=== PATIENT | male | born 1935 | race Caucasian/White ===

== ENCOUNTER 2023-05-30 14:42 | Inpatient (IN) | payer OTHER, SELFPAY ==
[2023-05-30] VITALS (8 sets, daily range): BP systolic 100–127; BP diastolic 56–81; BMI 24.9
--- NOTE | 2023-05-30 11:10 | ED.GENMED ---
History of Present Illness
General
Chief Complaint: Breathing Problem
Source: patient
Exam Limitations: none
Time Seen by Provider: 05/30/23 10:59
Travel History
Have you had any contact with someone who has COVID-19?: No
Do you have any symptoms of coronavirus? Fever > 100 degrees, chills, cough, shortness of breath, sore throat, loss of taste or smell, muscle aches, or headache?: No
History of Present Illness
History of Present Illness:
88-year-old male with chronic interstitial lung disease presents from facility with increased shortness of breath and oxygen demand. At baseline patient is typically on nasal cannula oxygen 8 to 10 L. He denies fevers. He denies significant cough
or chest pain. No abdominal pain or vomiting. He denies significant leg swelling. He was hypoxic at facility at his baseline ox EMS placed him on nonrebreather
Past History
Past History
ED Past Medical History: Other (Interstitial lung disease)
Social History
Tobacco: Former smoker
Alcohol: None
Drug: None
Living: with family
Phy Exam
Physical Exam
Physical Exam:
General: Well-developed male with increased work of breathing
HEENT: Normocephalic atraumatic
Heart: Regular rate and rhythm no murmur
Lungs: Coarse breath sounds throughout
Abdomen: Soft nontender nondistended
Extremities: No cyanosis or edema
Skin: Warm no rash
Scores
Heart Failure Risk
Heart Failure Risk Score: Not Applicable
Course
Orders/Labs/Results
Orders:
Orders
05/30/23 11:09
CR Chest Portable - 1 View Urgent
Comment:
Reason For Exam: sob
Reason Study Needs to be Portable: Patient Unstable
05/30/23 11:11
Dexamethasone Sod Phosphate [Decadron] 10 mg IV NOW STA
Ipratropium/Albuterol Sulfate [Duoneb] 3 ml INH R NOW ONE
05/30/23 11:18
Complete Blood Count/With Diff Urgent
Comprehensive Metabolic Panel Urgent
Lactic Acid Q4H
Comment: CANCEL 2nd LACTIC ACID IF 1st LACTIC ACID IS LESS THAN 2
NT-proBNP Urgent
Blood Culture Q30M
MICHELLE Source: Blood/Venous
Specimen Description:
Blood Culture Q30M
MICHELLE Source: Blood/Venous
Specimen Description:
05/30/23 11:44
COVID-19 Antigen Urgent
Source: Nasal Swab
Influenza A+B Rapid Molecular Urgent
MICHELLE Source: Nasal Swab
Specimen Description:
Abnormal Lab Results
05/30/23
11:18
WBC 12.2 H 10^3/uL
(4.8-10.8)
RBC 4.41 L 10^6/uL
(4.70-6.10)
MPV 11.8 H fL
(7.4-10.4)
Abs Immat Gran (auto) 0.1 H 10^3/uL
(0-0.05)
Absolute Neuts (auto) 9.8 H 10^3/uL
(1.4-6.5)
Absolute Lymphs (auto) 0.6 L 10^3/uL
(1.2-3.4)
Absolute Monos (auto) 1.7 H 10^3/uL
(0.1-0.6)
Immature Gran % 0.6 H %
(0-0.5)
Neutrophils % 79.8 H %
(42.2-75.2)
Lymphocytes % 4.7 L %
(20.5-51.1)
Monocytes % 14.1 H %
(1.7-9.3)
Glucose 142 H mg/dl
(70-99)
05/30/23 11:18
05/30/23 11:18
Vital Signs
Initial and Last Documented VS:
Initial Vital Signs
Temp Pulse Resp BP Pulse Ox
97.5 F 102 26 127/81 96
05/30/23 11:00 05/30/23 11:00 05/30/23 11:00 05/30/23 11:00 05/30/23 11:00
Last Documented Vital Signs
Temp Pulse Resp BP Pulse Ox
97.5 F 90 22 116/77 97
05/30/23 11:00 05/30/23 13:00 05/30/23 13:00 05/30/23 13:00 05/30/23 13:00
MDM/Problems Addressed
Differential Diagnosis Includes:
Hypoxia. Differential could include pneumonia versus heart failure flare of chronic lung disease.
Check labs. Patient on 10 L nonrebreather currently at 96%. He feels slightly better. Try Decadron and DuoNeb. He is chronically on steroids. Will check x-ray for pneumonia. Check BNP for evidence of heart failure but does not appear volume
overloaded at this time
*Critical Care Note
Total Time (30-74mins, 75-104mins- exclusive of procedures): Not Applicable
Update Note
Update Note:
BMP low. Chest x-ray shows chronic findings. Patient still requiring high flow oxygen. Will admit to hospital for hypoxia likely flare of underlying chronic interstitial disease.
ED Attending Note
-
Portions of this chart may have been created with voice recognition software.� Occasional wrong word or��sound alike� substitutions may have occurred due to the inherent limitations of voice recognition software.
Discharge Plan
Departure
Patient Disposition: Admit
Date of Disposition: 05/30/23
Time of Disposition: 13:21
Admit to: Telemetry
Presentation/result/management discussed w/ accepting MD/DO: Hospitalist
Discharge Problem:
Hypoxia
Prescriptions:
No Action
rosuvastatin 5 mg tablet
5 mg PO QPM
aspirin 81 mg Tablet,Delayed Release (Dr/Ec)
81 mg PO NOON
famotidine [Pepcid] 20 mg Tablet
20 mg PO BID
ipratropium bromide 21 mcg (0.03 %) [place],Non-Aerosol
2 spray INTRANASAL BIDPRN PRN (Reason: ALLERGIES)
loratadine [Claritin] 10 mg Tablet
10 mg PO DAILY
cyclosporine [Restasis] 0.05 % Dropperette
1 drp BOTH EYES Q12H
sodium chloride 0.65 % Aerosol,[place]
1 - 2 spray INTRANASAL DAILYPRN PRN (Reason: congestion)
pregabalin [Lyrica] 100 mg Capsule
200 mg PO DAILY
omeprazole 20 mg Tablet,Delayed Release (Dr/Ec)
20 mg PO HS
Ofev 150 mg Capsule
150 mg PO DAILY
diltiazem HCl 120 mg Capsule,Extended Release 24hr
120 mg PO DAILY Qty: 30 2RF
prednisone 10 mg tablet
10 mg PO MOWEFR Qty: 30 0RF
pregabalin [Lyrica] 100 mg Capsule
100 mg PO BID@1200,1800
Referrals:
UNKNOWN - PT DOES,NOT KNOW [Family Provider] -
Interventions
Interventions:
*Risk Screen - Suicide Last Done: 05/30/23 11:00
*General Assessment Last Done: 05/30/23 11:00
*Neglect/Abuse Screening Last Done: 05/30/23 11:00
ED- Fall Risk Assessment Last Done: 05/30/23 11:07
*ED COVID-19 Vaccine History Last Done: 05/30/23 11:00
ED- Cardiac Assessment Last Done: 05/30/23 11:07
ED- Pulmonary Assessment Last Done: 05/30/23 11:07
[2023-05-30] MEDS: DUONEB 3 ML INH ×3 (11:21→19:59)
[2023-05-30] MEDS: DECADRON 10 MG IV (11:21)
[2023-05-30 11:31] LABS: % Basophils 0.2 % (0-2); % Eosinophils 0.6 % (0-6); % Immature Granulocytes 0.6 % (0-0.5); % Lymphocytes 4.7 % (20.5-51.1); % Monocytes 14.1 % (1.7-9.3); % Neutrophils 79.8 % (42.2-75.2); Absolute Eosinophils 0.1 10^3/uL (0-0.7); Absolute Immature Granulocytes 0.1 10^3/uL (0-0.05); Absolute Lymphocytes 0.6 10^3/uL (1.2-3.4); Absolute Monocytes 1.7 10^3/uL (0.1-0.6); Absolute Neutrophils 9.8 10^3/uL (1.4-6.5); Hematocrit 39.3 % (39.0-52.0); Mean Corp Hgb Conc. 33.1 g/dL (33.0-37.0); Mean Corpuscular Hgb 29.5 pg (27.0-31.0); Mean Corpuscular Volume 89.1 fL (80.0-94.0); Mean Platelet Volume 11.8 fL (7.4-10.4); Nucleated Red Blood Cells % 0 % (-); Platelet Count 248 10^3/uL (130-400); Red Blood Cell Count 4.41 10^6/uL (4.70-6.10); Red Cell Dist. Width 14.5 % (11.5-14.5); White Blood Cell Count 12.2 10^3/uL (4.8-10.8)
[2023-05-30 11:46] LABS: ALT (SGPT) 21 U/L (0-50); AST (SGOT) 23 U/L (17-59); Albumin 3.6 g/dl (3.5-5.0); Alkaline Phosphatase 91 U/L (38-126); Blood Urea Nitrogen 17 mg/dl (9-20); Calcium 8.7 mg/dl (8.4-10.2); Carbon Dioxide 29 mmol/L (22-30); Chloride 104 mmol/L (98-107); Estimated Creatinine Clearance 69 ml/min; Glucose 142 mg/dl (70-99); Lactic Acid 1.3 mmol/L (0.7-2.0); Potassium 4.3 mmol/L (3.5-5.1); Sodium 136 mmol/L (135-145); Total Bilirubin 1.3 mg/dl (0.2-1.3); Total Protein 6.4 g/dl (6.3-8.2); eGFR > 60.00
[2023-05-30 11:54] LABS: NT-proBNP 398 pg/ml
[2023-05-30 12:16] LABS: COVID-19 Antigen Negative (Negative)
--- NOTE | 2023-05-30 14:14 | HPS.HSE ---
Addendum entered and electronically signed by Bharath Pena MD 05/30/23 15:34:
Seen and examined by me independently in collaboration with the nurse practitioner Caren.
Past medical history/social history/medication/allergies reviewed.
Lab data and imaging data reviewed.
Patient with significant history for chronic hypoxic respiratory failure from ILD on 8 to 10 L presents with more hypoxia and shortness of breath.
Been progressive. No premonitory infective symptoms of upper respiratory tract or lower respiratory tract.
Denies any chest pains or palpitations. BNP normal for his age and no JVD or LE edema.
On chronic steroids.
He has no wheeze but he has bilateral extensive crackles. He is not in in any distress currently stable on 10 L in the ER. His saturations does drop with prolonged conversation.
Unclear if this is flareup of his ILD. Start on steroids. Consult pulmonary.
He is DNR.
Discussed with and son at bedside regarding clinical findings and treatment plan.
Original Note:
Family Physician
-
Family Physician: NOT KNOW UNKNOWN - PT DOES
Chief Complaint
-
Shortness of Breath
History of Present Illness
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
Neuralgia who was brought in by EMS to the ED c/o SOB x 1 day. He states he is always a little short of breath but that is has worsened in the last day. He states exertion of any kind, including speaking, worsens his symptoms significantly. He
states that this is similar to previous exacerbations of his interstitial lung disease. At baseline he is on 8-10L of O2 through nasal cannula. He denies fever, chills, cough, chest pain, abdominal pain, N/V/D/C, or peripheral edema.
Medical History
Past Medical History
Past Medical History: Reports Other
Additional Past Medical History:
Chronic Hypoxic Respiratory Failure
Interstitial Lung Disease
Pulmonary Hypertension
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
Premature Atrial Tachycardia
CKD Stage II
Hypercholesteremia
Post-Herpetic Neuralgia
BPH
Chronic Diarrhea
Past Surgical History: Reports Other
Additional Past Surgical History:
Cataracts
Laporte Teeth
Social History
Tobacco: Non-smoker
Alcohol: None
Drug: None
Family History
Family History: Not pertinent
Allergies / Home Medications
Allergies reflects when Allergies were last updated in [facility].
Home Medications with original date entered in [facility]
Allergy/Medication List:
Allergies
Allergy/AdvReac Type Severity Reaction Status Date / Time
No Known Allergies Allergy Verified 05/30/23 10:59
Home Medications
aspirin 81 mg tablet,delayed release 81 mg PO NOON Blood Clot Prevention/Tx 02/28/23
cyclosporine 0.05 % eye drops in a dropperette (Restasis) 1 drp BOTH EYES Q12H Eye Condition 02/28/23
famotidine 20 mg tablet (Pepcid) 20 mg PO BID Gastrointestinal Issue 02/28/23
ipratropium bromide 21 mcg (0.03 %) nasal spray 2 spray intranasal BIDPRN PRN ALLERGIES 02/28/23
loratadine 10 mg tablet (Claritin) 10 mg PO DAILY Allergies 02/28/23
nintedanib 150 mg capsule (Ofev) 150 mg PO DAILY interstitial lung disease 02/28/23
omeprazole 20 mg tablet,delayed release 20 mg PO HS Gastrointestinal Issue 02/28/23
pregabalin 100 mg capsule (Lyrica) 200 mg PO DAILY Pain 02/28/23
rosuvastatin 5 mg tablet 5 mg PO QPM High Cholesterol 02/28/23
sodium chloride 0.65 % nasal spray aerosol 1 - 2 spray intranasal DAILYPRN PRN congestion 02/28/23
diltiazem HCl 120 mg capsule,extended release 24 hr 120 mg PO DAILY Tachycardia #30 caps 03/04/23
prednisone 10 mg tablet 10 mg PO MOWEFR #30 tabs 03/04/23
pregabalin 100 mg capsule (Lyrica) 100 mg PO BID@1200,1800 05/30/23
Review of Systems
-
A 12 point ROS was completed and negative except as noted: Yes
Constitutional: Denies Fever or Chills
Respiratory: Reports Trouble Breathing; Denies Cough
Cardiac: Denies Chest Pain or Palpitations
Musculoskeletal: Denies Edema
Physical Exam
Vital Signs
Vital Signs
Temp Pulse Resp BP Pulse Ox
97.5 F 90 22 116/77 97
05/30/23 11:00 05/30/23 13:00 05/30/23 13:00 05/30/23 13:00 05/30/23 13:00
Physical Exam
General: Comfortable and Conversant (Conversational Dyspnea, quickly drops to 88% with conversation)
HEENT: Moist mucous membranes, Atraumatic and Oxygen (Nasal Cannula)
Respiratory: Rales (Diffuse) and Non Labored Respirations; No Wheezes
Cardiac: S1/S2 and Regular Rhythm
GI: Soft and Non Tender
Rectal: Deferred by Provider
Musculoskeletal: No Clubbing, No Cyanosis and Other (Trace edema bilateral lower ext)
Skin: Warm and Dry
Neuro: Awake, Alert, Oriented and Nonfocal/grossly intact
Laboratory Results
-
05/30/23 11:18
05/30/23 11:18
Laboratory Results
Lactic Acid Cancelled 05/30/23 15:15
Total Bilirubin 1.3 mg/dl (0.2-1.3) 05/30/23 11:18
AST 23 U/L (17-59) 05/30/23 11:18
ALT 21 U/L (0-50) 05/30/23 11:18
Alkaline Phosphatase 91 U/L (38-126) 05/30/23 11:18
Data Reviewed
-
Diagnostic Radiology: Report Reviewed by me
Lab Data: Labs Reviewed by me
Old Records: Reviewed
Impression/Plan
-
Acute on Chronic Hypoxic Respiratory Failure
-Continue supplemental oxygen - Baseline 8-10L
Acute Exacerbation of Interstitial Lung Disease
-Consult Pulmonary
-Transition oral prednisone to Decadron
-Continue DuoNeb QID and PRN
Premature Atrial Tachycardia
-Continue Diltiazem
Hypercholesteremia
-Continue Crestor
Post-Herpetic Neuralgia
-Continue Lyrica
DVT proph: Lovenox
Code Status: Full Code
--- NOTE | 2023-05-30 16:00 | PTCARENOTE ---
Received pt from ED, VSS, pulse ox 94% on 10 liters midflow. Lungs with scattered rales throughout. Appears comfortable at present, family at bedside. No complaints offered.
--- NOTE | 2023-05-30 16:44 | CON.PUL ---
Consultation
Consultation Request
Date/Time Consultation Requested: 05-30-23
Date/Time Consultation Performed: 05-30-23
Requesting Provider: Hospitalist
Performing Provider: Dr Wan
Reason for Consultation: dyspnea
Medical History
-
Chief Complaint: dyspnea
History of Present Illness:
Mr Booker Fragoso is an 88/M adm 05-30 with 1 wk h/o acute on chronic dyspnea, per report POx on walking 10-15 ft down to 70s while on O2 10L, called office 05-29, rec to come to ER.
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
Denies cough, expectoration, wheezing, fever, NS, chills, n/v. Reports no change in mild chronic DINAH edema, mild intermittent diarrhea (ofev related, on intermittent imodium) and postnasal drip. Denies CP, dysuria. Reports reflux is controlled on
famotidine
While seen at [facility], on O2 12L, POx 95% appeared comfortable, speaking in full sentences
Past Medical History
Past Medical History: Other (see A&P for PMH/PSH)
Social History
Tobacco: Non-smoker
Alcohol: None
Drug: None
Personal:
Living: Assisted Living
Family History
Family History: Reviewed & Not Pertinent
Allergies / Home Medications
Allergies
Allergy/AdvReac Type Severity Reaction Status Date / Time
No Known Allergies Allergy Verified 05/30/23 10:59
Home Medications
Medication Instructions Recorded Confirmed Last Taken Type
aspirin 81 mg tablet,delayed 81 mg PO NOON Blood Clot 02/28/23 05/30/23 05/29/23 History
release Prevention/Tx
cyclosporine 0.05 % eye drops in a 1 drp BOTH EYES Q12H Eye Condition 02/28/23 05/30/23 05/30/23 History
dropperette (Restasis)
famotidine 20 mg tablet (Pepcid) 20 mg PO BID Gastrointestinal Issue 02/28/23 05/30/23 05/30/23 History
ipratropium bromide 21 mcg (0.03 2 spray intranasal BIDPRN PRN 02/28/23 05/30/23 Unknown History
%) nasal spray ALLERGIES
loratadine 10 mg tablet (Claritin) 10 mg PO DAILY Allergies 02/28/23 05/30/23 02/27/23 History
nintedanib 150 mg capsule (Ofev) 150 mg PO DAILY interstitial lung 02/28/23 05/30/23 05/30/23 History
disease
omeprazole 20 mg tablet,delayed 20 mg PO HS Gastrointestinal Issue 02/28/23 05/30/23 05/29/23 History
release
pregabalin 100 mg capsule (Lyrica) 200 mg PO DAILY Pain 02/28/23 05/30/23 05/30/23 History
rosuvastatin 5 mg tablet 5 mg PO QPM High Cholesterol 02/28/23 05/30/23 05/29/23 History
sodium chloride 0.65 % nasal spray 1 - 2 spray intranasal DAILYPRN 02/28/23 05/30/23 Unknown History
aerosol PRN congestion
diltiazem HCl 120 mg 120 mg PO DAILY Tachycardia #30 03/04/23 05/30/23 05/30/23 Rx
capsule,extended release 24 hr caps
prednisone 10 mg tablet 10 mg PO MOWEFR #30 tabs 03/04/23 05/30/23 05/30/23 Rx
pregabalin 100 mg capsule (Lyrica) 100 mg PO BID@1200,1800 05/30/23 05/30/23 05/29/23 History
Review of Systems
-
History Source: Patient
All other systems: Negative unless noted
Respiratory: Trouble Breathing
Abdomen/GI: Diarrhea
Musculoskeletal: Edema (DINAH)
Vitals / Labs / Diagnostic Testing
Vital Signs
Temp Pulse Resp BP Pulse Ox
97.5 F 95 24 115/67 94
05/30/23 15:56 05/30/23 15:56 05/30/23 15:56 05/30/23 15:56 05/30/23 15:56
Lab Data
05/30/23 11:18
05/30/23 11:18
Microbiology
05/30/23 11:44 Nasal Swab Influenza Types A & B (ANNETTE) - Final
Negative for Influenza A & B, NAAT
Negative results must be combined with clinical observations
and patient history.
Nucleic Acid Amplification test (NAAT)performed on the
[employer] platform.
Diagnostic Testing:
Physical Exam
-
HEENT: Normocephalic and Moist Mucous Membranes
Cardiovascular: Regular Rhythm, Murmur (n), Peripheral Edema (mild legs edema), Calf Tenderness (n) and JVD
Respiratory: Wheeze (n), Rales (velcro at bases) and Accessory Resp Muscle Use (n at rest)
GI: Soft, Non Distended and Non Tender
Neurology: Awake, AO x 3 and No Motor Deficits
Skin: Dry
General: Respiratory Distress (n at rest on O2)
Assessment
-
Assessment:
Mr Booker Fragoso is an 88/M adm 05-30 with 1 wk h/o acute on chronic dyspnea, per report POx on walking 10-15 ft down to 70s while on O2 10L, called office 05-29, rec to come to ER. 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
Denies cough, expectoration, wheezing, fever, NS, chills, n/v. Reports no change in mild chronic DINAH edema, mild intermittent diarrhea (ofev related, on intermittent imodium) and postnasal drip. Denies CP, dysuria. Reports reflux is controlled on
famotidine
Impression:
Acute on chronic hypoxemic respiratory failure
ILD flare, recurrent
Mild leukocytosis
Normal BNP
COVID/flu negative
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
ILD, baseline O2 8-10L, on nintedanib, on chronic prednisone 10 mg MWF
ILD flare adm DH 02-28 to , treated with IV CS, also cefepime/po doxy changed to cefdinir/po doxy to complete 10 d course
Developed brief AFib, started on diltiazem po
GERD
CKD
Postherpetic neuralgia
BPH
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
Nonsmoker
Plan:
Continue O2 protocol
Already on home O2 for last 5y, currently at 8-10L, home concentrator delivers 10 L max
Known h/o fibrotic ILD, on ofev with good compliance
Comfortable on O2 12L at time of visit while at rest, POx 95%, wean down O2 as tolerated for POx>=90%
Keep asp precs
Adm CXR appears better re basilar GGOs seen in last adm Feb 2023
No current evidence of infectious process
Continue empiric dexam 4 mg IV q6, eventually will return to chronic prednisone 10 mg MWF
Observe off atbs at this time, no clinical evidence of resp infection
Check PCT, blood cxs, UA with reflex cx
Discussed fibrotic ILD diagnosis, natural history and treatment
They are aware of the progressive decline seen in ILD over time, confirm DNR status
Continue DNs qid and prn
Check DINAH doppler
DVT proph for now: enoxaparin
D/w and Mrs Fragoso and their son at bedside
Diagnostic tests:
CXR 05-30-23 c/w 02-28-23 and 12-05-22. Baseline with mld to moderate fibrotic changes, Nov film with bilateral basilar GGOs. Current film with improved basilar GGOs and mild pulm vasc congestion, overall progression of ILD
TTE (02/28/2023):
Normal left ventricular size, wall thickness and systolic function.
LV ejection fraction is 60-65%.
Mild mitral regurgitation.
Mild tricuspid regurgitation.
Pulmonary hypertension
mildly dilated aortic root 3.9cm
Compared to the previous echo 05/26/22there is no significant change
[2023-05-30] MEDS: LYRICA 100 MG PO (17:00)
[2023-05-30] MEDS: LOVENOX 40 MG SC (17:00)
[2023-05-30] MEDS: CRESTOR 5 MG PO (17:00)
[2023-05-30] MEDS: DECADRON 4 MG IV ×2 (17:01→21:39)
[2023-05-30 18:44] LABS: Procalcitonin < 0.05 ng/ml (0.0-0.25)
[2023-05-30] MEDS: RESTASIS 0.05% OPHTHALMIC EMULSION 1 DROPS BOTH EYES (19:46)
[2023-05-30] MEDS: PEPCID 20 MG PO (19:46)
[2023-05-30 20:43] LABS: Urine Albumin 1+ (Neg - Trace); Urine Bilirubin 1+ (Negative); Urine Character Clear (Clear); Urine Color Yellow; Urine Glucose 2+ (Negative); Urine Ketone Trace (Negative); Urine Leukocyte Trace (Negative); Urine Nitrite Negative (Negative); Urine Occult Blood 1+ (Negative); Urine Urobilinogen Negative (Neg - 1+)
[2023-05-30 20:55] LABS: Urine Squamous Cell 0-2 /LPF (Few)
[2023-05-31] VITALS (8 sets, daily range): BP systolic 101–144; BP diastolic 57–78; PULSE 100–110; O2SAT 95
[2023-05-31] MEDS: DECADRON 4 MG IV ×4 (03:19→21:34)
[2023-05-31] MEDS: DUONEB 3 ML INH ×4 (07:42→19:33)
[2023-05-31 08:17] LABS: Hematocrit 35.5 % (39.0-52.0); Hemoglobin 11.8 g/dL (13.0-18.0); Mean Corp Hgb Conc. 33.2 g/dL (33.0-37.0); Mean Corpuscular Hgb 29.1 pg (27.0-31.0); Mean Corpuscular Volume 87.7 fL (80.0-94.0); Mean Platelet Volume 11.7 fL (7.4-10.4); Platelet Count 228 10^3/uL (130-400); Red Blood Cell Count 4.05 10^6/uL (4.70-6.10); Red Cell Dist. Width 13.9 % (11.5-14.5); White Blood Cell Count 7.6 10^3/uL (4.8-10.8)
[2023-05-31] MEDS: RESTASIS 0.05% OPHTHALMIC EMULSION 1 DROPS BOTH EYES ×2 (08:35→19:54)
[2023-05-31] MEDS: CLARITIN 10 MG PO (08:35)
[2023-05-31] MEDS: LYRICA 200 MG PO (08:36)
[2023-05-31] MEDS: NON-FORMULARY ITEM 150 MG PO (08:37)
[2023-05-31] MEDS: PROTONIX 40 MG PO (08:37)
[2023-05-31] MEDS: PEPCID 20 MG PO ×2 (08:37→19:53)
[2023-05-31] MEDS: CARDIZEM CD 120 MG PO (08:37)
[2023-05-31 08:50] LABS: Blood Urea Nitrogen 18 mg/dl (9-20); Carbon Dioxide 27 mmol/L (22-30); Chloride 106 mmol/L (98-107); Estimated Creatinine Clearance 92 ml/min; Glucose 146 mg/dl (70-99); Magnesium 2.4 mg/dl (1.6-2.3); Potassium 4.6 mmol/L (3.5-5.1); Sodium 136 mmol/L (135-145); eGFR > 60.00
[2023-05-31] MEDS: TYLENOL 650 MG PO (08:57)
--- NOTE | 2023-05-31 10:11 | CM ---
Patient seen bedside, initial assessment completed. Patient reports he lives with his , Sweta, at [facility], has been there for 13 years. Patient denies VN or SNF. Patient denies DME other than oxygen through [employer],
patient reports typically on 10L. Patient reports family doctor Dr. Walsh, pharmacy used [facility]. CM will continue to follow for discharge planning needs.
Plan; return to [facility], watch for PT/OT eval for possible VN needs.
[2023-05-31] MEDS: ASPIR LOW (ENTERIC COATED) 81 MG PO (12:17)
[2023-05-31] MEDS: LYRICA 100 MG PO ×2 (12:18→16:43)
--- NOTE | 2023-05-31 12:30 | W.PN.PUL3 ---
Today's Communication / Plan
-
O2
CS
BDs
UCx
Assessment
-
Assessment:
Mr Booker Fragoso is an 88/M adm 05-30 with 1 wk h/o acute on chronic dyspnea, per report POx on walking 10-15 ft down to 70s while on O2 10L, called office 05-29, rec to come to ER. 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
Denies cough, expectoration, wheezing, fever, NS, chills, n/v. Reports no change in mild chronic DINAH edema, mild intermittent diarrhea (ofev related, on intermittent imodium) and postnasal drip. Denies CP, dysuria. Reports reflux is controlled on
famotidine
Impression:
Acute on chronic hypoxemic respiratory failure
ILD flare, recurrent
Mild leukocytosis
Normal BNP
COVID/flu negative
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
ILD, baseline O2 8-10L, on nintedanib, on chronic prednisone 10 mg MWF
ILD flare adm DH 02-28 to , treated with IV CS, also cefepime/po doxy changed to cefdinir/po doxy to complete 10 d course
Developed brief AFib, started on diltiazem po
GERD
CKD
Postherpetic neuralgia
BPH
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
Nonsmoker
Plan:
Continue O2 protocol
Already on home O2 for last 5y, currently at 8-10L, home concentrator delivers 10 L max
Known h/o fibrotic ILD, on ofev with good compliance
Comfortable on O2 12L at time of consult while at rest, POx 95%, wean down O2 as tolerated for POx>=90%
Currently on 9L, POx 95% at rest
Discussed goal of POx>=90% to titrate his O2 use, explained that does not need to keep higher level of oximetry as long as otherwise resp stable
Monitor for epistaxis which he has presented in the past
Keep asp precs
Adm CXR appears better re basilar GGOs seen in last adm Feb 2023
Continue empiric dexam 4 mg IV q6, continue for now, eventually will return to chronic prednisone 10 mg MWF
Observe off atbs at this time, no clinical evidence of resp infection
Remains afebrile and hemodyn stable
PCT negative
Blood cxs pending
UA with microhematuria, no reflex cx sent, ordered cx
Discussed fibrotic ILD diagnosis, natural history and treatment
They are aware of the progressive decline seen in ILD over time, confirm DNR status
Continue DNs qid and prn
Reports noticeable improvement of dyspnea with inpatient use of DNs, would like to continue nebulized BDs at home, will need nebulizer device prescribed upon d/c for prn use of DNs at home (q6 prn)
DINAH doppler 05-30 negative
DVT proph: enoxaparin
D/w and Mrs Fragoso and their son at bedside
Diagnostic tests:
CXR 05-30-23 c/w 02-28-23 and 12-05-22. Baseline with mld to moderate fibrotic changes, Nov film with bilateral basilar GGOs. Current film with improved basilar GGOs and mild pulm vasc congestion, overall progression of ILD
TTE (02/28/2023):
Normal left ventricular size, wall thickness and systolic function.
LV ejection fraction is 60-65%.
Mild mitral regurgitation.
Mild tricuspid regurgitation.
Pulmonary hypertension
mildly dilated aortic root 3.9cm
Compared to the previous echo 05/26/22there is no significant change
Subjective Data
-
Date of Service:
Date of Service: May 31, 2023
Chief Complaint: Pulmonary Follow Up
Subjective:
No major events reported
Comfortable on O2 10L, earlier on 9L with POx 95%
No resp distress at rest on O2, per still very dyspneic with minimal activity
Seen by PT, on 10L O2, rapid desaturation with minimal activity
Review of Systems
General: Fever (n), Sweats (n), Chills (n) and Satisfactory Appetite
HEENT: Epistaxis (n) and Dysphagia
Cardiopulmonary: Dyspnea (n at rest on O2), Dyspnea on Exertion, Cough (trace), Sputum Production (n), Wheezing (n) and Chest Pain (n)
GI: Abdominal Pain (n), Nausea (n), Vomiting (n) and Diarrhea (intermittent)
Neuro: Weakness
Objective Data
Data Reviewed
Vital Signs / I&O / Oxygen:
Vital Signs
Temp Pulse Resp BP Pulse Ox
97.4 F 87 19 125/64 98
05/31/23 11:30 05/31/23 11:30 05/31/23 11:30 05/31/23 11:30 05/31/23 11:30
Intake and Output
05/30/23 05/31/23 06/01/23
06:59 06:59 06:59
Intake Total 840 / 840
Output Total 550 / 550
Balance 290 / 290
SaO2 98
Nasal Cannula flow liters per 10
minute
Physical Exam
General: Comfortable
HEENT: Normocephalic and Moist Mucous Membranes
Cardiovascular: Regular Rhythm, Murmur (n) and Peripheral Edema (mild DINAH)
Respiratory: Wheeze (n), Crackles (velcro ), Rhonchi (trace), Non-Labored Respirations (at rest) and Stridor (n)
GI: Soft, Non Distended and Non Tender
Neurology: Awake, AO x 3 and No Motor Deficits
Skin: Dry
Labs/Micro/Reports
Lab Data
05/31/23 07:38
05/31/23 07:38
Microbiology
05/30/23 11:18 Blood/Venous Blood Culture - Preliminary
No Growth in 24 hours- Final report to follow
05/30/23 11:18 Blood/Venous Blood Culture - Preliminary
No Growth in 24 hours- Final report to follow
05/30/23 11:44 Nasal Swab Influenza Types A & B (ANNETTE) - Final
Negative for Influenza A & B, NAAT
Negative results must be combined with clinical observations
and patient history.
Nucleic Acid Amplification test (NAAT)performed on the
[employer] platform.
--- NOTE | 2023-05-31 13:32 | W.PN.HOSP.TC ---
Today's Communication/Plan
-
Continue with IV Decadron.
Continue with nebulizers.
Wean oxygen as able.
Assessment / Plan
Assessment / Plan
Acute on Chronic Hypoxic Respiratory Failure
-Continue supplemental oxygen - Baseline 8-10L
Acute Exacerbation of Interstitial Lung Disease
-Appreciate pulmonary input
-Transition oral prednisone to IV Decadron
-Continue DuoNeb QID and PRN
Premature Atrial Tachycardia
-Continue Diltiazem
Hypercholesteremia
-Continue Crestor
Post-Herpetic Neuralgia
-Continue Lyrica
DVT proph: Lovenox
Code Status: Full Code
Anticipated Discharge: 24 - 48 hours
Subjective/Interval History
-
Date of Service: May 31, 2023
No new changes but has then noticed the nebulizer is helping him breathe better.
Not much of cough, wheezing. No chest pain. No fever.
Objective Data
-
Labs:
Laboratory Results
05/31/23
07:38
WBC 7.6
Hgb 11.8 L
Hct 35.5 L
Plt Count 228
Sodium 136
Potassium 4.6
Chloride 106
Carbon Dioxide 27
BUN 18
Creatinine 0.6 L
Glucose 146 H
Calcium 9.0
Vital Signs:
Vital Signs
Temp Pulse Resp BP Pulse Ox
97.4 F 87 19 125/64 98
05/31/23 11:30 05/31/23 11:30 05/31/23 11:30 05/31/23 11:30 05/31/23 11:30
I&O
05/30/23 05/31/23 06/01/23
06:59 06:59 06:59
Intake Total 840 / 840
Output Total 550 / 550
Balance 290 / 290
Review of Systems
-
EENT: Denies Sore Throat
Abdomen/GI: Denies Abdominal Pain, Nausea or Vomiting
Neuro: Denies Dizzy
Physical Exam
-
General: No Apparent Distress
HEENT: Moist Mucous Membranes
Respiratory: Crackles and Non Labored Respirations; Negative Wheezes or Accessory Resp Muscle Use
Cardiac: Regular Rhythm and S1/S2
Neuro: AO x 3
Psych: Calm
Data Reviewed
-
Labs: Labs Reviewed by me
[2023-05-31] MEDS: CRESTOR 5 MG PO (16:43)
[2023-05-31] MEDS: LOVENOX 40 MG SC (17:03)
[2023-06-01 03:00] VITALS: BP 118/71
[2023-06-01] MEDS: DECADRON 4 MG IV ×3 (03:01→17:19)
[2023-06-01] MEDS: DUONEB 3 ML INH ×4 (07:16→19:52)
[2023-06-01 07:30] VITALS: BP 138/80
[2023-06-01] MEDS: RESTASIS 0.05% OPHTHALMIC EMULSION BOTH EYES ×2 (08:00→09:08)
[2023-06-01] MEDS: TYLENOL 650 MG PO ×2 (09:06→21:05)
[2023-06-01] MEDS: PEPCID 20 MG PO ×2 (09:08→20:10)
[2023-06-01] MEDS: CARDIZEM CD 120 MG PO (09:10)
[2023-06-01] MEDS: CLARITIN 10 MG PO (09:10)
[2023-06-01] MEDS: LYRICA 200 MG PO (09:10)
[2023-06-01] MEDS: NON-FORMULARY ITEM 150 MG PO (09:11)
[2023-06-01] MEDS: PROTONIX 40 MG PO (09:12)
--- NOTE | 2023-06-01 11:11 | CM ---
Patient seen bedside, discussed PT recommendation of home health. Patient declining at this time, reports he knows the exercises. IMM reviewed with patient, signed, placed in patients chart. CM will continue to follow for discharge planning needs.
Plan; return to [facility], declining HH at this time.
[2023-06-01 11:30] VITALS: BP 122/74
[2023-06-01] MEDS: LYRICA 100 MG PO ×2 (12:13→17:19)
[2023-06-01] MEDS: ASPIR LOW (ENTERIC COATED) 81 MG PO (12:13)
--- NOTE | 2023-06-01 12:38 | W.PN.PUL.V3 ---
Today's Communication / Plan
-
wean oxygen.
I will decrease Decadron.
Assessment discharge supplemental oxygen needs.
Outpatient pulmonary follow-up
Assessment
-
Assessment:
Mr Booker Fragoso is an 88/M adm 05-30 with 1 wk h/o acute on chronic dyspnea, per report POx on walking 10-15 ft down to 70s while on O2 10L, called office 05-29, rec to come to ER. 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
Denies cough, expectoration, wheezing, fever, NS, chills, n/v. Reports no change in mild chronic DINAH edema, mild intermittent diarrhea (ofev related, on intermittent imodium) and postnasal drip. Denies CP, dysuria. Reports reflux is controlled on
famotidine
Acute on chronic hypoxemic respiratory failure
ILD flare, recurrent
Mild leukocytosis
Normal BNP
COVID/flu negative
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
ILD, baseline O2 8-10L, on nintedanib, on chronic prednisone 10 mg MWF
ILD flare adm [facility] 02-28 to '23, treated with IV CS, also cefepime/po doxy changed to cefdinir/po doxy to complete 10 d course
Developed brief AFib, started on diltiazem po
GERD
CKD
Postherpetic neuralgia
BPH
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
Nonsmoker
Plan:
Respiratory status tenuous but slowly improving.
Continue supplemental oxygen-currently on 10 L-at-home 6 L at rest and 10 L with exertion.
Monitor for epistaxis.
Nebulizers as needed
Aspiration precautions.
Decrease Decadron to 4 mg IV every 8 hours
Follow cultures.
Observe off antibiotics.
Pro-calcitonin negative.
DVT prophylaxis-on Lovenox.
GI prophylaxis-on pantoprazole.
Nutrition
Early mobilization/physical therapy.
Outpatient follow-up with Dr. Hill
Diagnostic tests:
CXR 05-30-23 c/w 02-28-23 and 12-05-22. Baseline with mld to moderate fibrotic changes, Nov film with bilateral basilar GGOs. Current film with improved basilar GGOs and mild pulm vasc congestion, overall progression of ILD
TTE (02/28/2023):
Normal left ventricular size, wall thickness and systolic function.
LV ejection fraction is 60-65%.
Mild mitral regurgitation.
Mild tricuspid regurgitation.
Pulmonary hypertension
mildly dilated aortic root 3.9cm
Compared to the previous echo 05/26/22there is no significant change
Subjective Data
-
Date of Service:
Date of Service: June 01, 2023
Chief Complaint: Pulmonary Follow Up and Dyspnea Follow Up
Subjective:
He feels better, less short of breath, has dyspnea exertion, no chest pain, productive cough, or abdominal pain
Review of Systems
General: Other ( per HPI)
Objective Data
Data Reviewed
Vital Signs / I&O:
Vital Signs
Temp Pulse Resp BP Pulse Ox
97.7 F 73 18 138/80 96
06/01/23 07:30 06/01/23 11:03 06/01/23 07:30 06/01/23 09:10 06/01/23 11:03
Intake and Output
05/31/23 06/01/23 06/02/23
06:59 06:59 06:59
Intake Total 840 / 840 1440 / 1440
Output Total 550 / 550 450 / 450
Balance 290 / 290 990 / 990
SaO2: 96
Nasal Cannula flow liters per minute: 8
Physical Exam
General: Comfortable
HEENT: Normocephalic and Moist Mucous Membranes
Cardiovascular: Regular Rhythm, Murmur (n) and Peripheral Edema (mild DINAH)
Respiratory: Wheeze (n), Crackles (velcro -like at the bases), Rhonchi (trace), Non-Labored Respirations (at rest) and Stridor (n)
GI: Soft, Non Distended and Non Tender
Neurology: Awake, Alert and No Motor Deficits
Skin: Dry, Cyanosis (n), Jaundice (n) and Rash (n)
Labs/Micro/Reports
Lab Data
05/31/23 07:38
05/31/23 07:38
Microbiology
05/30/23 11:18 Blood/Venous Blood Culture - Preliminary
No Growth in 48 hours- Final report to follow
05/30/23 11:18 Blood/Venous Blood Culture - Preliminary
No Growth in 48 hours- Final report to follow
05/30/23 18:00 Blood/Venous Blood Culture - Preliminary
No Growth in 24 hours- Final report to follow
05/30/23 11:44 Nasal Swab Influenza Types A & B (ANNETTE) - Final
Negative for Influenza A & B, NAAT
Negative results must be combined with clinical observations
and patient history.
Nucleic Acid Amplification test (NAAT)performed on the
[employer] platform.
--- NOTE | 2023-06-01 12:52 | W.PN.HOSP.TC ---
Today's Communication/Plan
-
Continue with steroids.
Check D-dimers.
Assessment / Plan
Assessment / Plan
Acute on Chronic Hypoxic Respiratory Failure
-Continue supplemental oxygen - Baseline 8-10L
Acute Exacerbation of Interstitial Lung Disease
-Appreciate pulmonary input
-Transition oral prednisone to IV Decadron
-Continue DuoNeb QID and PRN
-Minimal improvement. Ultrasound of legs negative for DVT. Get a D-dimer and if it is positive I would get a CT chest to rule out any underlying pulmonary embolism and if negative will be more comfortable continuing with steroids. Currently no
evidence of lung infection. Holding on antibiotics.
Premature Atrial Tachycardia
-Continue Diltiazem
Hypercholesteremia
-Continue Crestor
Post-Herpetic Neuralgia
-Continue Lyrica
DVT proph: Lovenox
Code Status: Full Code
Anticipated Discharge: 24 - 48 hours
Subjective/Interval History
-
Date of Service: June 01, 2023
some improvement but overall not a great improvement yet on steroids.
He is taking longer to recover after exertion. Minimal exertion causing the symptoms.
Objective Data
-
Vital Signs:
Vital Signs
Temp Pulse Resp BP Pulse Ox
97.7 F 97 19 122/74 96
06/01/23 11:30 06/01/23 11:30 06/01/23 11:30 06/01/23 11:30 06/01/23 12:40
I&O
05/31/23 06/01/23 06/02/23
06:59 06:59 06:59
Intake Total 840 / 840 1440 / 1440
Output Total 550 / 550 450 / 450
Balance 290 / 290 990 / 990
Review of Systems
-
Constitutional: Denies Fever
Cardiac: Denies Chest Pain or Palpitations
Abdomen/GI: Denies Abdominal Pain, Nausea or Vomiting
Neuro: Denies Dizzy
Physical Exam
-
General: No Apparent Distress
HEENT: Moist Mucous Membranes
Respiratory: Crackles; Negative Wheezes
Cardiac: Regular Rhythm, S1/S2 and Tachycardic
GI: Soft
Musculoskeletal: No Edema
Neuro: AO x 3
Psych: Calm; Negative Confused
Data Reviewed
-
Labs: Labs Reviewed by me
[2023-06-01 14:44] LABS: D-Dimer 0.73 ug/mlFEU (0.00-0.50)
[2023-06-01 15:01] VITALS: BP 123/76
[2023-06-01] MEDS: LOVENOX 40 MG SC (17:19)
[2023-06-01] MEDS: CRESTOR 5 MG PO (17:19)
--- NOTE | 2023-06-01 18:52 | PTCARENOTE ---
Changed entire linen; clean linen.
[2023-06-01 19:57] VITALS: BP 116/69
[2023-06-01] MEDS: RESTASIS 0.05% OPHTHALMIC EMULSION 1 DROPS BOTH EYES (20:10)
[2023-06-01] MEDS: REFRESH EYE DROPS (PF) 1 DROPS OPHTH (20:10)
[2023-06-01 23:52] VITALS: BP 112/78
[2023-06-02] MEDS: DECADRON 4 MG IV ×3 (01:06→17:17)
[2023-06-02 03:34] VITALS: BP 123/76
[2023-06-02] MEDS: REFRESH EYE DROPS (PF) 1 DROPS OPHTH ×2 (07:50→19:16)
[2023-06-02] MEDS: DUONEB 3 ML INH ×4 (07:50→20:12)
[2023-06-02] MEDS: NON-FORMULARY ITEM 150 MG PO (07:51)
[2023-06-02] MEDS: PROTONIX 40 MG PO (07:51)
[2023-06-02] MEDS: CARDIZEM CD 120 MG PO (07:51)
[2023-06-02] MEDS: CLARITIN 10 MG PO (07:51)
[2023-06-02] MEDS: PEPCID 20 MG PO ×2 (07:51→19:16)
[2023-06-02 07:54] VITALS: BP 131/79
[2023-06-02] MEDS: TYLENOL 650 MG PO (08:06)
[2023-06-02] MEDS: LYRICA 200 MG PO (08:06)
[2023-06-02] MEDS: RESTASIS 0.05% OPHTHALMIC EMULSION 1 DROPS BOTH EYES ×2 (08:06→19:17)
--- NOTE | 2023-06-02 08:22 | W.PN.HOSP.TC ---
Today's Communication/Plan
-
DC
Assessment / Plan
Assessment / Plan
Acute on Chronic Hypoxic Respiratory Failure
-Continue supplemental oxygen - Baseline 8-10L- now increase in need of O2
Acute Exacerbation of Interstitial Lung Disease
-Appreciate pulmonary input
-Taper steroids per pulmonary
-Continue DuoNeb QID and PRN
-Slow improvement improvement. Ultrasound of legs negative for DVT. Currently no evidence of lung infection. Holding on antibiotics.
CT chest 06/01 shows-
Extremely limited. Severe respiratory motion degradation especially in the lower lobes. In the lower lobes, the examination is nondiagnostic beyond segmental level. Proximal to the segmental level in the lower lobes, no pulmonary embolism.
No upper lobe pulmonary embolism.
Distended pulmonary artery and right and left pulmonary artery, likely reflecting pulmonary hypertension.
Likely reactive mild mediastinal adenopathy.
Idiopathic pulmonary fibrosis. Prominent confluent groundglass opacity in the right upper lobe, raising the possibility of superimposed acute pneumonitis/alveolitis. Continue with steroids
No focal dense consolidation.
Premature Atrial Tachycardia
-Continue Diltiazem
Hypercholesteremia
-Continue Crestor
Post-Herpetic Neuralgia
-Continue Lyrica
DVT proph: Lovenox
Code Status: Full Code
Will medically optimal for discharge if okay from pulmonary standpoint.
Will prescribe mini nebulizer machine. Nebulizers as well prescribed. He has enough supplies of oxygen.
Discussed with pulmonary.
CM consulted for equipment
Total time of discharge 32 minutes.
Anticipated Discharge: Today
Subjective/Interval History
-
Date of Service: June 02, 2023
Slow improvement with his breathing. No worsening. Not much of cough.
No chest pain.
No fever or chills.
No nausea vomiting.
Objective Data
-
Vital Signs:
Vital Signs
Temp Pulse Resp BP Pulse Ox
97.5 F 73 18 131/79 98
06/02/23 07:54 06/02/23 07:56 06/02/23 07:56 06/02/23 07:54 06/02/23 07:56
I&O
06/01/23 06/02/23 06/03/23
06:59 06:59 06:59
Intake Total 1440 / 1440 1320 / 1320
Output Total 450 / 450 950 / 950
Balance 990 / 990 370 / 370
Review of Systems
-
Constitutional: Denies Fever or Chills
EENT: Denies Sore Throat
Respiratory: Reports Trouble Breathing; Denies Cough
Cardiac: Denies Chest Pain
Abdomen/GI: Denies Abdominal Pain, Nausea or Vomiting
Neuro: Denies Dizzy
Physical Exam
-
General: No Apparent Distress
HEENT: Moist Mucous Membranes
Respiratory: Crackles (crackles right lower zone more then left) and Non Labored Respirations; Negative Wheezes or Accessory Resp Muscle Use
Cardiac: Regular Rhythm and S1/S2; Negative Tachycardic
GI: Soft
Neuro: AO x 3
Psych: Calm
Data Reviewed
-
CT Scan: Report Reviewed by me (ct chest )
--- NOTE | 2023-06-02 09:40 | CM ---
CM was consulted for DME. CM delivered nebulizer from Consignment closet.
[2023-06-02 11:37] VITALS: BP 144/79
[2023-06-02] MEDS: LYRICA 100 MG PO ×2 (12:50→17:17)
[2023-06-02] MEDS: ASPIR LOW (ENTERIC COATED) 81 MG PO (12:50)
[2023-06-02 14:55] VITALS: BP 141/78
--- NOTE | 2023-06-02 16:36 | W.PN.PUL3 ---
Today's Communication / Plan
-
No change in steroids
CT chest does suggest increased groundglass changes in the right apex
Will continue with steroids
Continue to hold antibiotics given clinical improvement
Walk test in a.m. on 10 L
Home nebulizer with DuoNebs
Assessment
-
Mr Booker Fragoso is an 88/M adm 05-30 with 1 wk h/o acute on chronic dyspnea, per report POx on walking 10-15 ft down to 70s while on O2 10L, called office 05-29, rec to come to ER. 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
Denies cough, expectoration, wheezing, fever, NS, chills, n/v. Reports no change in mild chronic DINAH edema, mild intermittent diarrhea (ofev related, on intermittent imodium) and postnasal drip. Denies CP, dysuria. Reports reflux is controlled on
famotidine
Acute on chronic hypoxemic respiratory failure
ILD flare, recurrent
Mild leukocytosis
Normal BNP
COVID/flu negative
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
ILD, baseline O2 8-10L, on nintedanib, on chronic prednisone 10 mg MWF
Last ILD flare February 2023
Paroxysmal atrial fibrillation
GERD
CKD
Postherpetic neuralgia
BPH
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
Nonsmoker
Plan/recommendations
At this time, patient admits to objectively improving
However, still requiring 10 L, 98%.
Chest exam with crackles bilaterally
I reviewed CT chest 06/01. There is increased groundglass abnormality in the right upper lobe compared to prior imaging from 2021. There is in general increased interstitial changes bilaterally.
Moving forward
Suspect acute ILD flare given groundglass changes
Continue with IV Decadron
Will transition to prednisone in a.m. depending on how he is doing suspect he will require 40 to 60 mg with slow taper
Cannot rule out infectious pneumonitis but given subjective improvement, may be inflammatory findings per CT chest
Also cannot rule out volume component although patient denies obvious symptoms to suggest heart failure
proBNP normal
Pro-calcitonin negative.
DVT prophylaxis-on Lovenox.
GI prophylaxis-on pantoprazole.
Nutrition
Early mobilization/physical therapy.
Will set up home nebulizer
DuoNebs 4 times a day
Maintain GERD therapy
Would like to check walk test tomorrow morning on 10 L
Would like to also set up visiting nurse and home PT if able. Patient is at [facility] resident
Reviewed at length with patient, daughter and
Diagnostic tests:
CXR 05-30-23 c/w 02-28-23 and 12-05-22. Baseline with mld to moderate fibrotic changes, Nov film with bilateral basilar GGOs. Current film with improved basilar GGOs and mild pulm vasc congestion, overall progression of ILD
TTE (02/28/2023):
Normal left ventricular size, wall thickness and systolic function.
LV ejection fraction is 60-65%.
Mild mitral regurgitation.
Mild tricuspid regurgitation.
Pulmonary hypertension
mildly dilated aortic root 3.9cm
Compared to the previous echo 05/26/22there is no significant change
Subjective Data
-
Date of Service:
Date of Service: June 02, 2023
Chief Complaint: Pulmonary Follow Up and Dyspnea Follow Up
Subjective:
Patient states he feels improved since admission. Feels nebulizer helps him. He denies significant cough. He does have sinus congestion. Otherwise denies nausea, emesis. Both daughter and at bedside.
Objective Data
Data Reviewed
Vital Signs / I&O / Oxygen:
Vital Signs
Temp Pulse Resp BP Pulse Ox
97.5 F 76 16 141/78 94
06/02/23 14:55 06/02/23 15:22 06/02/23 15:22 06/02/23 14:55 06/02/23 14:55
Intake and Output
06/01/23 06/02/23 06/03/23
06:59 06:59 06:59
Intake Total 1440 / 1440 1320 / 1320
Output Total 450 / 450 950 / 950
Balance 990 / 990 370 / 370
SaO2 94
Nasal Cannula flow liters per 8
minute
Physical Exam
General: Comfortable
HEENT: Normocephalic and Moist Mucous Membranes
Cardiovascular: Regular Rhythm, Murmur (n) and Peripheral Edema (mild DINAH)
Respiratory: Wheeze (n), Crackles (Bilateral crackles), Rhonchi (trace), Non-Labored Respirations (at rest) and Stridor (n)
GI: Soft, Non Distended and Non Tender
Neurology: Awake, Alert and No Motor Deficits
Skin: Dry, Cyanosis (n), Jaundice (n) and Rash (n)
Labs/Micro/Reports
Lab Data
05/31/23 07:38
05/31/23 07:38
Microbiology
05/30/23 11:18 Blood/Venous Blood Culture - Preliminary
No Growth in 72 hours- Final report to follow
05/30/23 11:18 Blood/Venous Blood Culture - Preliminary
No Growth in 72 hours- Final report to follow
05/31/23 21:50 Urine Urine Culture - Preliminary
Escherichia coli
05/30/23 18:00 Blood/Venous Blood Culture - Preliminary
No Growth in 48 hours- Final report to follow
05/30/23 11:44 Nasal Swab Influenza Types A & B (ANNETTE) - Final
Negative for Influenza A & B, NAAT
Negative results must be combined with clinical observations
and patient history.
Nucleic Acid Amplification test (NAAT)performed on the
[employer] platform.
[2023-06-02] MEDS: CRESTOR 5 MG PO (17:17)
[2023-06-02] MEDS: LOVENOX 40 MG SC (17:17)
[2023-06-02 19:44] VITALS: BP 134/77
[2023-06-02 23:43] VITALS: BP 125/83
[2023-06-03] MEDS: DECADRON 4 MG IV ×3 (01:10→17:44)
[2023-06-03 03:00] VITALS: BP 139/78
[2023-06-03 07:18] VITALS: BP 119/86
[2023-06-03] MEDS: DUONEB 3 ML INH ×4 (07:19→20:09)
[2023-06-03] MEDS: LYRICA 200 MG PO (07:41)
[2023-06-03] MEDS: PROTONIX 40 MG PO (07:41)
[2023-06-03] MEDS: PEPCID 20 MG PO ×2 (07:41→19:36)
[2023-06-03] MEDS: CLARITIN 10 MG PO (07:41)
[2023-06-03] MEDS: CARDIZEM CD 120 MG PO (07:41)
[2023-06-03] MEDS: RESTASIS 0.05% OPHTHALMIC EMULSION 1 DROPS BOTH EYES ×2 (07:42→19:36)
[2023-06-03] MEDS: REFRESH EYE DROPS (PF) 1 DROPS OPHTH ×2 (07:42→19:37)
[2023-06-03] MEDS: NON-FORMULARY ITEM 150 MG PO (07:50)
[2023-06-03 09:40] VITALS: O2SAT 68; O2SAT 96
--- NOTE | 2023-06-03 09:50 | W.PN.HOSP.TC ---
Today's Communication/Plan
-
Echo
Start on IV Lasix
Start on doxycycline
CW steroids
Assessment / Plan
Assessment / Plan
Acute on Chronic Hypoxic Respiratory Failure
-Continue supplemental oxygen - Baseline 8-10L- now increase in need of O2
Acute Exacerbation of Interstitial Lung Disease
-Appreciate pulmonary input
-Taper steroids per pulmonary
-Continue DuoNeb QID and PRN
-Slow improvement improvement. Ultrasound of legs negative for DVT. Currently no evidence of lung infection. Holding on antibiotics.
CT chest 06/01 shows-
Extremely limited. Severe respiratory motion degradation especially in the lower lobes. In the lower lobes, the examination is nondiagnostic beyond segmental level. Proximal to the segmental level in the lower lobes, no pulmonary embolism.
No upper lobe pulmonary embolism.
Distended pulmonary artery and right and left pulmonary artery, likely reflecting pulmonary hypertension.
Likely reactive mild mediastinal adenopathy.
Idiopathic pulmonary fibrosis. Prominent confluent groundglass opacity in the right upper lobe, raising the possibility of superimposed acute pneumonitis/alveolitis. Continue with steroids
No focal dense consolidation.
Significant drop in exertional desaturations noted-get an echocardiogram, and start on Lasix. Discussed with pulmonary who also recommends addition of doxycycline.
Premature Atrial Tachycardia
-Continue Diltiazem
Hypercholesteremia
-Continue Crestor
Post-Herpetic Neuralgia
-Continue Lyrica
DVT proph: Lovenox
Code Status: Full Code
Hold on DC
Anticipated Discharge: 24 - 48 hours
Subjective/Interval History
-
Date of Service: June 03, 2023
He thinks his
But he performed poorly with exertional oxygen measurements-on 10 L he dropped to 68% with elevated heart rate of 126 walking less than 10 feet
he saturates fine at rest and 10 L
No fever and denies much of cough.
Objective Data
-
Vital Signs:
Vital Signs
Temp Pulse Resp BP Pulse Ox
97.7 F 104 16 119/86 96
06/03/23 07:18 06/03/23 07:41 06/03/23 07:22 06/03/23 07:41 06/03/23 07:22
I&O
06/02/23 06/03/23 06/04/23
06:59 06:59 06:59
Intake Total 1320 / 1320 1560 / 1560
Output Total 950 / 950 1075 / 1075
Balance 370 / 370 485 / 485
Review of Systems
-
EENT: Denies Sore Throat
Cardiac: Denies Chest Pain
Abdomen/GI: Denies Abdominal Pain, Nausea or Vomiting
Neuro: Denies Dizzy
Physical Exam
-
General: No Apparent Distress
HEENT: Moist Mucous Membranes
Respiratory: Crackles (BL basilar area crackles today) and Non Labored Respirations; Negative Wheezes or Accessory Resp Muscle Use
Cardiac: Regular Rhythm and S1/S2
Neuro: AO x 3
Psych: Calm
Data Reviewed
-
Labs: Labs Reviewed by me
--- NOTE | 2023-06-03 10:58 | CM ---
manager customer service reviewed patient's chart and spoke with patient and patient's spouse and daughter at bedside. Patient is on 10 liters of oxygen and patient requires 10 liters of oxygen at home from [facility], patient's concentrator goes up to 10 liters
and patient and daughter are requesting that [facility] obtain a concentrator with higher liter flow. manager customer service will need to reach out to [facility] tomorrow when they are open. Patient's spouse took home nebulizer. Patient is agreeable to [facility]
Visiting nurses, referral sent.
[facility]
[phone]
[2023-06-03 11:31] VITALS: BP 125/80
[2023-06-03] MEDS: LASIX 20 MG IV (11:37)
[2023-06-03] MEDS: VIBRAMYCIN 100 MG PO ×2 (11:37→19:36)
[2023-06-03] MEDS: ASPIR LOW (ENTERIC COATED) 81 MG PO (11:37)
[2023-06-03] MEDS: LYRICA 100 MG PO ×2 (11:37→17:43)
--- NOTE | 2023-06-03 14:09 | W.PN.PUL3 ---
Today's Communication / Plan
-
Lasix
Echocardiogram in a.m.
Doxycycline
No change in steroids
Case management to help set up second concentrator if able
Will be evaluated for inhaled Tyvaso as outpatient (this may be a stretch)
Assessment
-
Mr Booker Fragoso is an 88/M adm 05-30 with 1 wk h/o acute on chronic dyspnea, per report POx on walking 10-15 ft down to 70s while on O2 10L, called office 05-29, rec to come to ER. 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
Denies cough, expectoration, wheezing, fever, NS, chills, n/v. Reports no change in mild chronic DINAH edema, mild intermittent diarrhea (ofev related, on intermittent imodium) and postnasal drip. Denies CP, dysuria. Reports reflux is controlled on
famotidine
Acute on chronic hypoxemic respiratory failure
Desaturates to 68% with walk test on 10 L
ILD flare, recurrent
Patchy groundglass infiltrate for CT chest acute
Mild leukocytosis
Normal BNP
COVID/flu negative
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
ILD, baseline O2 8-10L, on nintedanib, on chronic prednisone 10 mg MWF
Last ILD flare February 2023
Paroxysmal atrial fibrillation
GERD
CKD
Postherpetic neuralgia
BPH
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
Nonsmoker
Plan/recommendations
At this time, patient admits to objectively improving
However, on further questioning overall the same
Brief walk test this morning desaturates to 68% on 10 L, heart rate in the 120s
Chest exam with crackles bilaterally
I reviewed CT chest 06/01. There is increased groundglass abnormality in the right upper lobe compared to prior imaging from 2021.
This is consistent with an acute pneumonitis
Moving forward
Given his persistent severe hypoxia (although patient states this is chronic), not ready for discharge
Continue with IV Decadron, no changes
Lasix therapy
Echocardiogram in a.m.
Add doxycycline
Of note proBNP normal
Pro-calcitonin negative
But given the severity of hypoxia, would continue with the above. I suspect his significant lower extremity edema was in the setting of persistent hypoxia. This has improved since admission
He may be eligible for vasodilator therapy but unfortunately this therapy has not been found to be helpful in patients with IPF/ILD
There is no clear evidence of autoimmune disease and his extensive workup in the past
We may consider inhaled Tyvaso in the future, this can be done as an outpatient
Not sure this can be pursued as inpatient
Will also consult case management. Would recommend second concentrator at home as patient will need more than 10 L
This can be done with 2 concentrators
Continue with nebulized therapy, patient feels this helps some
Home nebulizer also has been set up
DuoNebs 4 times a day
Continue GERD therapy
DVT prophylaxis-on Lovenox.
GI prophylaxis-on pantoprazole.
Nutrition
Early mobilization/physical therapy.
Would like to also set up visiting nurse and home PT if able at time of discharge. Patient is at [facility] resident
Patient has good insight into disease and is aware of long-term prognosis for IPF/ILD
Reviewed at length with patient, daughter and at bedside 06/02
Reviewed with primary service, nursing
Diagnostic tests:
CXR 05-30-23 c/w 02-28-23 and 12-05-22. Baseline with mld to moderate fibrotic changes, Nov film with bilateral basilar GGOs. Current film with improved basilar GGOs and mild pulm vasc congestion, overall progression of ILD
TTE (02/28/2023):
Normal left ventricular size, wall thickness and systolic function.
LV ejection fraction is 60-65%.
Mild mitral regurgitation.
Mild tricuspid regurgitation.
Pulmonary hypertension
mildly dilated aortic root 3.9cm
Compared to the previous echo 05/26/22there is no significant change
Subjective Data
-
Date of Service:
Date of Service: June 03, 2023
Chief Complaint: Pulmonary Follow Up and Dyspnea Follow Up
Subjective:
Patient seen and examined earlier this morning. He feels overall unchanged. Denies chest pain, significant cough, appears comfortable, in good spirits. Anxious for discharge
Objective Data
Data Reviewed
Vital Signs / I&O / Oxygen:
Vital Signs
Temp Pulse Resp BP Pulse Ox
97.5 F 80 18 125/80 96
06/03/23 11:31 06/03/23 11:42 06/03/23 11:42 06/03/23 11:37 06/03/23 11:31
Intake and Output
06/02/23 06/03/23 06/04/23
06:59 06:59 06:59
Intake Total 1320 / 1320 1560 / 1560
Output Total 950 / 950 1075 / 1075
Balance 370 / 370 485 / 485
SaO2 96
Nasal Cannula flow liters per 10
minute
Physical Exam
General: Comfortable
HEENT: Normocephalic and Moist Mucous Membranes
Cardiovascular: Regular Rhythm, Murmur (n) and Peripheral Edema (n)
Respiratory: Wheeze (n), Crackles (Bilateral crackles), Rhonchi (trace), Non-Labored Respirations (at rest) and Stridor (n)
GI: Soft, Non Distended and Non Tender
Neurology: Awake, Alert and No Motor Deficits
Skin: Dry, Cyanosis (n), Jaundice (n) and Rash (n)
Labs/Micro/Reports
Lab Data
05/31/23 07:38
05/31/23 07:38
Microbiology
05/30/23 11:18 Blood/Venous Blood Culture - Preliminary
No Growth in 4 days- Final report to follow
05/30/23 11:18 Blood/Venous Blood Culture - Preliminary
No Growth in 4 days- Final report to follow
05/31/23 21:50 Urine Urine Culture - Final
Escherichia coli
05/30/23 18:00 Blood/Venous Blood Culture - Preliminary
No Growth in 72 hours- Final report to follow
[2023-06-03 15:50] VITALS: BP 121/70
[2023-06-03] MEDS: CRESTOR 5 MG PO (17:43)
[2023-06-03] MEDS: LOVENOX 40 MG SC (17:43)
[2023-06-03 23:05] VITALS: BP 99/68
[2023-06-04] MEDS: DECADRON 4 MG IV ×2 (01:03→09:57)
[2023-06-04 07:30] VITALS: BP 145/89
[2023-06-04] MEDS: RESTASIS 0.05% OPHTHALMIC EMULSION 1 DROPS BOTH EYES (07:47)
[2023-06-04] MEDS: DUONEB 3 ML INH ×3 (07:47→15:14)
[2023-06-04] MEDS: LASIX 20 MG IV (07:47)
[2023-06-04] MEDS: PROTONIX 40 MG PO (07:48)
[2023-06-04] MEDS: VIBRAMYCIN 100 MG PO (07:48)
[2023-06-04] MEDS: CARDIZEM CD 120 MG PO (07:48)
[2023-06-04] MEDS: CLARITIN 10 MG PO (07:48)
[2023-06-04] MEDS: LYRICA 200 MG PO (07:48)
[2023-06-04] MEDS: PEPCID 20 MG PO (07:48)
[2023-06-04] MEDS: NON-FORMULARY ITEM 150 MG PO (07:49)
[2023-06-04] MEDS: REFRESH EYE DROPS (PF) 1 DROPS OPHTH (07:49)
[2023-06-04 07:55] LABS: Blood Urea Nitrogen 32 mg/dl (9-20); Calcium 8.5 mg/dl (8.4-10.2); Carbon Dioxide 32 mmol/L (22-30); Chloride 104 mmol/L (98-107); Estimated Creatinine Clearance 62 ml/min; Glucose 124 mg/dl (70-99); Potassium 4.9 mmol/L (3.5-5.1); Sodium 137 mmol/L (135-145); eGFR > 60.00
[2023-06-04] MEDS: ASPIR LOW (ENTERIC COATED) 81 MG PO (11:11)
[2023-06-04] MEDS: LYRICA 100 MG PO (11:11)
--- NOTE | 2023-06-04 11:25 | W.PN.HOSP.TC ---
Addendum entered and electronically signed by Lizzy Phillips MD 06/04/23 15:42:
Patient is in need of oxygen at 10 to 15 liters/minute via nasal cannula continuously due to pulse oximetry of 68% on 10L. Oxygen will help to improve hypoxemia. Patient is mobile within the home. DuoNeb therapy has been tried and is ineffective in
treating hypoxemia related symptoms. Oxygen is needed to improve symptoms.
Original Note:
Today's Communication/Plan
-
waiting for ECHO
Assessment / Plan
Assessment / Plan
pt is an 88 year old male
Acute on Chronic Hypoxic Respiratory Failure due to Acute Exacerbation of end stage Interstitial Lung Disease --Continue supplemental oxygen - Baseline 10L--apprec pulm--recommending 2nd concentrator--taper steroids--cont nebs--doxy started as well
as diuretics (cont for now although doesn't appear volume overloaded to me)--echo pending-- Ultrasound of legs negative for DVT-- Currently no evidence of lung infection--likely pulm HTN--Significant drop in exertional desaturations noted-get an
echocardiogram, and start on Lasix. Discussed with pulmonary who also recommends addition of doxycycline.
Premature Atrial Tachycardia-Continue Diltiazem
Hypercholesteremia-Continue Crestor
Post-Herpetic Neuralgia-Continue Lyrica
DVT proph: Lovenox
Code Status: Full Code
Anticipated Discharge: Within 24 hours
Subjective/Interval History
-
Date of Service: June 04, 2023
pt upset that echo not done yet
Objective Data
-
Labs:
Laboratory Results
06/04/23
07:10
Sodium 137
Potassium 4.9
Chloride 104
Carbon Dioxide 32 H
BUN 32 H
Creatinine 0.9
Glucose 124 H
Calcium 8.5
Vital Signs:
max temp for 24 hours
06/03/23
15:50
Temp 97.8 F
Vital Signs
Temp Pulse Resp BP Pulse Ox
97.6 F 89 18 145/89 97
06/04/23 07:30 06/04/23 07:48 06/04/23 07:48 06/04/23 07:30 06/04/23 09:10
I&O
06/03/23 06/04/23 06/05/23
06:59 06:59 06:59
Intake Total 1560 / 1560 1200 / 1200
Output Total 1075 / 1075 500 / 500
Balance 485 / 485 700 / 700
Review of Systems
-
All other systems: Reviewed and negative
Physical Exam
-
General: Well Developed, Well Nourished and No Apparent Distress
HEENT: Normocephalic, Atraumatic and Oxygen (10 L)
Respiratory: Crackles; Negative Wheezes
Cardiac: Regular Rhythm and S1/S2; Negative Murmur
GI: Soft, Nontender, Nondistended and Normal Bowel Sounds
Musculoskeletal: No Clubbing, No Cyanosis and No Edema
Neuro: Awake and Alert
Psych: Calm
--- NOTE | 2023-06-04 11:30 | CM ---
Addendum entered by Sweta Franco 06/04/23 15:58:
CM spoke with Ramo from [facility]. they are able to provide concentrator to bleed into patient concentrator and updated script faxed to [facility]. Patient physician made aware and patient . Patient to call as soon as possible when leaving
hospital to have additional concentrator delivered to patient home. Patient to be followed by [facility]. Patient indicated that patient going home with home O2. IMM completed and signed form placed on chart. CM will continue to follow
for discharge planning needs.
Addendum entered by Sweta Franco 06/04/23 12:31:
Sravani Liriano who initially stated that [facility] could not do that and directed CM to try other agencies. CM spoke with [facility] who indicated that they would suggest an optimizer. CM spoke with Dr. Hill who requested CM speak with
supervisor furnace process at [facility]. CM spoke with Ramo at [facility] who indicated that he would research it and get back to CM. Dr Hill also updated. Await updates from company.
Original Note:
Patient seen at bedside with and son as well as phyisician. Patient states that he needs more than 10 liters O2 and [facility] is to get additional O2 flow. Patient to have VN with [facility], referral sent. CM called to [facility] and await
response regarding options. Patient pending echo today. CM will continue to follow for discharge planning needs.
Plan; home with O2. Patient may need ambulance pending review with physician. Patient is on 10 liters O2.
[2023-06-04 12:39] LABS: NT-proBNP 129 pg/ml
--- NOTE | 2023-06-04 14:43 | W.PN.PUL3 ---
Today's Communication / Plan
-
Hold IV Lasix
Continue doxycycline
Transition to prednisone 40 mg
Remains on 10 L, oxygen concentrator will be delivered.
Continue nebulizer therapy while in the hospital
Discharge planning
Assessment
-
Mr Booker Fragoso is an 88/M adm 05-30 with 1 wk h/o acute on chronic dyspnea, per report POx on walking 10-15 ft down to 70s while on O2 10L, called office 05-29, rec to come to ER. 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
Denies cough, expectoration, wheezing, fever, NS, chills, n/v. Reports no change in mild chronic DINAH edema, mild intermittent diarrhea (ofev related, on intermittent imodium) and postnasal drip. Denies CP, dysuria. Reports reflux is controlled on
famotidine
Acute on chronic hypoxemic respiratory failure
Desaturates to 68% with walk test on 10 L
ILD flare, recurrent
Patchy groundglass infiltrate for CT chest acute
Mild leukocytosis
Normal BNP
COVID/flu negative
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
ILD, baseline O2 8-10L, on nintedanib, on chronic prednisone 10 mg MWF
Last ILD flare February 2023
Paroxysmal atrial fibrillation
GERD
CKD
Postherpetic neuralgia
BPH
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
Nonsmoker
Plan/recommendations
No significant change from overnight.
Remains on mid flow oxygen/Ventimask.
Chest exam with crackles bilaterally
CT chest 06/01. There is increased groundglass abnormality in the right upper lobe compared to prior imaging from 2021.
This is consistent with an acute pneumonitis
-
Continue with current plan:
Given his persistent severe hypoxia (although patient states this is chronic), not ready for discharge. ( apparently 10 L via NC at home)
Transition to prednisone 40 mg daily until seen in our office. Slow taper going forward.
Continue doxycycline-complete total 7 days for possible infection.
Cont. OFEV
-
Echocardiogram: Report reviewed. Normal LVEF. Normal right ventricular size and function. Moderate pulmonary hypertension.
Of note proBNP normal
Pro-calcitonin negative
Clinically does not appear volume overloaded, will hold IV lasix today.
-
I suspect his significant lower extremity edema was in the setting of persistent hypoxia. This has improved since admission
He may be eligible for vasodilator therapy but unfortunately this therapy has not been found to be helpful in patients with IPF/ILD
There is no clear evidence of autoimmune disease and his extensive workup in the past
We may consider inhaled Tyvaso in the future, this can be done as an outpatient
[facility] management -Would recommend second concentrator at home as patient will need more than 10 L
This can be done with 2 concentrators
Discussed with case management, this will be delivered tonight.
Continue with nebulized therapy, patient feels this helps some
Home nebulizer also has been set up
DuoNebs 4 times a day
-
Continue GERD therapy
DVT prophylaxis-on Lovenox.
GI prophylaxis-on pantoprazole.
Patient is at [facility] resident
Patient has good insight into disease and is aware of long-term prognosis for IPF/ILD
Dr. Griffiths reviewed at length with patient and on 06/04/2023.
Okay to discharge today.
Patient understands that his situation is tenuous. He is DNR.
I suggested palliative care if his condition does not improve.
-
I discussed the case with Dr. Phillips
I coordinated with case management as well the delivery of additional concentrator.
-
Total time spent coordinating care, discussing with patient at the bedside 36 minutes.
-
Hopefully discharge later today.

Diagnostic tests:
CXR 05-30-23 c/w 02-28-23 and 12-05-22. Baseline with mld to moderate fibrotic changes, Nov film with bilateral basilar GGOs. Current film with improved basilar GGOs and mild pulm vasc congestion, overall progression of ILD
TTE (02/28/2023):
Normal left ventricular size, wall thickness and systolic function.
LV ejection fraction is 60-65%.
Mild mitral regurgitation.
Mild tricuspid regurgitation.
Pulmonary hypertension
mildly dilated aortic root 3.9cm
Compared to the previous echo 05/26/22there is no significant change
Subjective Data
-
Date of Service:
Date of Service: June 04, 2023
Chief Complaint: Pulmonary Follow Up and Dyspnea Follow Up
Subjective:
Continues to report shortness of breath
No significant phlegm production or hemoptysis
Denies any chest pain.
Review of Systems
General: Fever (n)
Cardiopulmonary: Dyspnea, Dyspnea on Exertion, Cough and Sputum Production (n)
GI: Abdominal Pain (n)
Neuro: Headache (n) and Dizziness (n)
Objective Data
Data Reviewed
Vital Signs / I&O / Oxygen:
Vital Signs
Temp Pulse Resp BP Pulse Ox
97.6 F 89 18 145/89 97
06/04/23 07:30 06/04/23 07:48 06/04/23 07:48 06/04/23 07:30 06/04/23 09:10
Intake and Output
06/03/23 06/04/23 06/05/23
06:59 06:59 06:59
Intake Total 1560 / 1560 1200 / 1200
Output Total 1075 / 1075 500 / 500
Balance 485 / 485 700 / 700
SaO2 97
Nasal Cannula flow liters per 10
minute
Physical Exam
General: Comfortable
HEENT: Normocephalic and Moist Mucous Membranes
Cardiovascular: Regular Rhythm, Murmur (n) and Peripheral Edema (n)
Respiratory: Wheeze (n), Crackles (Bilateral crackles), Rhonchi (trace), Non-Labored Respirations (at rest) and Stridor (n)
GI: Soft, Non Distended and Non Tender
Neurology: Awake, Alert and No Motor Deficits
Skin: Dry, Cyanosis (n), Jaundice (n) and Rash (n)
Labs/Micro/Reports
Lab Data
05/31/23 07:38
06/04/23 07:10
Microbiology
05/30/23 11:18 Blood/Venous Blood Culture - Final
No Growth - Final Report
05/30/23 11:18 Blood/Venous Blood Culture - Final
No Growth - Final Report
05/30/23 18:00 Blood/Venous Blood Culture - Preliminary
No Growth in 4 days- Final report to follow
05/31/23 21:50 Urine Urine Culture - Final
Escherichia coli
[2023-06-04 15:30] VITALS: BP 104/70
--- NOTE | 2023-06-04 18:56 | W.DCSUMMARY ---
Discharge Summary
Discharge Data
Date of Admission: 05/30/23
Date of Discharge: 06/04/23
-
Pending Results: No
Hospital Course
Primary care physician : Lizzie Walsh MD
Principal Discharge diagnosis : Acute on chronic hypoxemic respiratory failure due to acute exacerbation of end-stage interstitial lung disease
Chronic Discharge diagnosis : Premature atrial tachycardia, hyperlipidemia, postherpetic neuralgia
Hospital Course : Patient was an 88-year-old male who lives at [facility] with his who has a history of chronic hypoxemic respiratory failure (10 L) secondary to end-stage interstitial lung disease on chronic steroids.
Patient was brought in due to shortness of breath for 1 day. He was always a little short of breath but this worsened over the last day prior to admission. He stated that any exertion of any kind including speaking worsens his symptoms
significantly. Patient was admitted.
Problem #1: Acute on chronic hypoxemic respiratory failure due to acute exacerbation of end-stage interstitial lung disease. Patient was seen in consultation by pulmonary. His baseline oxygen requirements are to 10 L of oxygen. Pulmonary is
recommended a second concentrator. He was placed on steroids and his nebulizers were continued. Doxycycline was added as well as diuretics. Echocardiogram was done but does not show much in the way of volume overload. Pulmonary pressures are
increased however I believe that this is secondary to pulmonary hypertension from his end-stage interstitial lung disease. There is no evidence of any lung infection. He did have a significant drop in exertional desaturations down to 68% on 10 L.
Pulmonary is recommending a second concentrator. Case management has been consulted to assist with obtaining this. Plan is for him to continue on his 40 mg of prednisone daily until he is seen by his primary nutrition internship (Dr. Hill). Pulmonary
has cleared him for discharge. Pulmonary has told him that if he continues to get worse that there is nothing more to offer and that he should consider palliative care and/or hospice.
Problem #2: All other medical issues. These include Premature atrial tachycardia, hyperlipidemia, postherpetic neuralgia. These medical issues were stable during his hospitalization. Medications were continued as able.
Patient is stable for discharge home at this time. If there are any questions regarding this dictation or his hospital stay, please not hesitate to call. Our office number is [phone].
Time for discharge 35 minutes
Important imaging findings :
CT SCAN CHEST IMPRESSION:
Extremely limited secondary to respiratory motion degradation.
Extremely limited. Severe respiratory motion degradation especially in the lower lobes. In the lower lobes, the examination is nondiagnostic beyond segmental level. Proximal to the segmental level in the lower lobes, no pulmonary embolism.
No upper lobe pulmonary embolism.
Distended pulmonary artery and right and left pulmonary artery, likely reflecting pulmonary hypertension.
Likely reactive mild mediastinal adenopathy.
Idiopathic pulmonary fibrosis. Prominent confluent groundglass opacity in the right upper lobe, raising the possibility of superimposed acute pneumonitis/alveolitis.
No focal dense consolidation.
Procedure findings :
ECHOCARDIOGRAM CONCLUSIONS:
�Normal left ventricular size, wall thickness and systolic function.
�No regional wall motion abnormalities are seen.
�LV ejection fraction is 65-70% by Cast's method of discs.�
�Normal diastolic function.
�Normal right ventricular size and function.
�Mild mitral regurgitation.
�Mild aortic regurgitation.
�Mild tricuspid regurgitation.
�Top normal estimated PASP of 37 mmHg. Assuming a right atrial pressure of 3
�mmHg.
�Mildly dilated aortic root, SOV 3.9 cm.
�Compared to prior from February 28, 2023, estimated PASP has decreased from 55
�mmHg to now 37 mmHg.
Discharge Plan
-
Patient Disposition: Home with Home Care
Discharge Diagnosis/Procedures: Acute on chronic hypoxemic respiratory failure due to acute exacerbation of end-stage interstitial lung disease, premature atrial tachycardia, hyperlipidemia, postherpetic neuralgia
Condition: Good
Diet: Regular
Activity: As tolerated
Driving Restrictions: As prior to admission
Other Services: VN
Activity Restrictions/Additional Instructions:
Stay on 40 mg of prednisone daily until you see Dr. Hill
Referrals:
Katja Hill MD [Active] - in three to four weeks (Appt 07/10/23 at 130pm)
Lizzie Walsh MD [Non-Admitting Privileges] - in less than 1 week
Prescriptions:
New
ipratropium-albuterol 0.5 mg-3 mg(2.5 mg base)/3 mL Solution For Nebulization
3 ml inhalation BID Qty: 90 1RF
ipratropium-albuterol 0.5 mg-3 mg(2.5 mg base)/3 mL Solution For Nebulization
3 ml inhalation R Q4HPRN PRN (Reason: shortness of breath/wheeze) Qty: 1 0RF
Saline Nasal 0.65 % Aerosol,Ruth
2 spray intranasal QID PRN (Reason: dry nasal passages) Qty: 44 0RF
Refresh Classic (PF) 1.4-0.6 % Dropperette
1 drp ophthalmic (eye) BID Qty: 30 0RF
doxycycline hyclate 100 mg Capsule
100 mg PO Q12 Qty: 10 0RF
prednisone 20 mg tablet
40 mg PO DAILY Qty: 60 0RF
Continued
rosuvastatin 5 mg tablet
5 mg PO QPM
aspirin 81 mg Tablet,Delayed Release (Dr/Ec)
81 mg PO NOON
famotidine [Pepcid] 20 mg Tablet
20 mg PO BID
ipratropium bromide 21 mcg (0.03 %) Ruth,Non-Aerosol
2 spray INTRANASAL BIDPRN PRN (Reason: ALLERGIES)
loratadine [Claritin] 10 mg Tablet
10 mg PO DAILY
cyclosporine [Restasis] 0.05 % Dropperette
1 drp BOTH EYES Q12H
sodium chloride 0.65 % Aerosol,Ruth
1 - 2 spray INTRANASAL DAILYPRN PRN (Reason: congestion)
pregabalin [Lyrica] 100 mg Capsule
200 mg PO DAILY
omeprazole 20 mg Tablet,Delayed Release (Dr/Ec)
20 mg PO HS
Ofev 150 mg Capsule
150 mg PO DAILY
diltiazem HCl 120 mg Capsule,Extended Release 24hr
120 mg PO DAILY Qty: 30 2RF
pregabalin [Lyrica] 100 mg Capsule
100 mg PO BID@1200,1800 Qty: 0 0RF
Discontinued
prednisone 10 mg tablet
10 mg PO MOWEFR Qty: 30 0RF
Discharge Orders:
Discharge Patient (As Directed); Ordered 06/04/23
Ordered By: Lizzy Phillips
Discharge Date and Time
Discharge Date/Time: 06/04/23 17:00
== END 2023-06-04 17:00 | disposition home health service (06) | DRG 196 ==
LOC: 4 WEST ACU 14:42
PROVIDERS: Physician Assistant; Physician Assistant Medical; ADMITTING PHYSICIAN Internal Medicine; ATTENDING PHYSICIAN Internal Medicine; CONSULT PHYSICIAN Internal Medicine Pulmonary Disease; EMERGENCY PHYSICIAN Emergency Medicine
DX: J84.112 Idiopathic pulmonary fibrosis (principal); J96.21 Acute and chronic respiratory failure with hypoxia; B02.29 Other postherpetic nervous system involvement; I47.19 Other supraventricular tachycardia; D84.9 Immunodeficiency, unspecified; Z87.891 Personal history of nicotine dependence; Z11.52 Encounter for screening for COVID-19; Z66 Do not resuscitate; E78.00 Pure hypercholesterolemia, unspecified; K21.9 Gastro-esophageal reflux disease without esophagitis; I48.91 Unspecified atrial fibrillation; N18.2 Chronic kidney disease, stage 2 (mild); I27.20 Pulmonary hypertension, unspecified; I48.0 Paroxysmal atrial fibrillation; Z79.01 Long term (current) use of anticoagulants
CPT/HCPCS: 71045; 71275; 80048; 80053; 81003; 81015; 83605; 83735; 83880; 84145; 85025; 85027; 85379; 87040; 87077; 87086; 87186; 87502; 87811; 93306; 93970; 94640; 94761; 96374; 97162; 97167; 99285; Q9967